=== PATIENT | female | born 1985 | race Caucasian/White ===

== ENCOUNTER → 2016-06-06 | Outpatient (CLI) | payer BC ==
[~2016-06-06] MED LIST: CALCIUM PO; CHOL100026 PO; DESO1TAB33 PO; FERR325T74 PO; LISI-787 PO; PANT40TA PO
== END | disposition home or self-care (01) ==
LOC: C.PAPS 09:42
PROVIDERS: ATTEND Obstetrics & Gynecology
DX: Z01.419 Encounter for gynecological examination (general) (routine) without abnormal findings (principal)

== ENCOUNTER 2018-07-13 20:04 | Inpatient (IN) ==
[2018-07-13] MEDS ORDERED: BETAMETH SOD PHOS/ACETATE IA 6 MG/ML IM SCH (20:45)
[2018-07-13] MEDS ORDERED: LABETALOL HCL IV 5 MG/ML 20ML IV ONE (20:58)
[2018-07-13] MEDS ORDERED: LABETALOL HCL IV 5 MG/ML 20ML IV STA ×2 (20:59→22:22)
[2018-07-13 21:25] LABS: Basophils # (auto) 0.03 K/uL (0-0.2); Basophils % (auto) 0.2 %; Eosinophils # (auto) 0.16 K/uL (0-0.5); Eosinophils % (auto) 1.2 %; Hematocrit (blood only) 32.9 % (37-47); Hemoglobin 11.1 g/dL (12.0-16.0); Immature Granulocytes # (auto) 0.23 K/uL (0.00-0.02); Immature Granulocytes % (auto) 1.8 %; Lymphocytes # (auto) 2.58 K/uL (1.2-3.4); Mean Corpuscular Volume 87.5 fL (80-100); Mean Platelet Volume 12.3 fL (7.4-10.4); Monocytes # (auto) 0.88 K/uL (0.11-0.59); Monocytes % (auto) 6.8 %; Neutrophils # (auto) 9.05 K/uL (1.4-6.5); Platelet Count 250 K/uL (130-400); RDW Coefficient of Variation 14.4 % (11.5-14.5); RDW Standard Deviation 45.8 fL (36.4-46.3); Red Blood Count 3.76 M/uL (4.2-5.4); White Blood Count 12.93 K/uL (4.8-10.8)
[2018-07-13] MEDS ORDERED: OXYTOCIN 30 UNITS/500 ML BAG IV PRN (21:25)
[2018-07-13] MEDS ORDERED: LACTATED RINGER'S 1,000 ML IV PRN (21:25)
[2018-07-13 21:30] LABS: Mean Corpuscular Hgb Conc 33.7 g/dL (32-36)
[2018-07-13] MEDS ORDERED: PENICILLIN G POTASSIUM 6 MU in DEXTROSE 5% 250 ML IV STA (21:30)
[2018-07-13] MEDS: LACTATED RINGER'S 1,000 ML IV SCH (21:34)
[2018-07-13 21:36] LABS: INR 0.9 (0.9-1.1); Prothrombin Time 9.7 Seconds (9.0-12.0)
--- NOTE | 2018-07-13 21:41 | History & Physical Report ---
Date of Service July 13, 2018 Assessment & Plan (1) premature rupture of membranes (PPROM) with unknown onset of labor: 33yo G1 at 35 weeks GA. PPROM - BMZ - PCN with GBS swab prior - Oxytocin for IOL (2) Chronic hypertension: Patient is a medication controlled cHTN. Elevated BPs on admission. No PIH symptoms - PIH labs ordered - Labetalol 20mg IV now - Discussed Preeclampsia and recommended Mg if BPs need to be retreated or with any symptoms or lab abnormalities. Patient agrees with plan History of Present Illness Chief Complaint: LOF Primary Care Provider: NO PCP 33yo G1 at 35.1 weeks GA with VIOLET of 08/16/18 by LMP. Patient present to L&D with LOF. Denies VB. Mild cramping. Good FM. At time of presentation patient was noted to have severe range BPs. She took her regular dose of Procardia this am. She is denying PIH symptoms. Patient course complicated by cHTN on Procardia XL 120mg daily. BPs have been controlled throughout [place] on 07/11: EFW ~50% Allergies Allergy/AdvReac Type Severity Reaction Status Date / Time No Known Allergies Allergy Verified 07/13/18 20:26 Home Medications Home Medications Medication Instructions Recorded Confirmed Type PNV cmb#95-ferrous fumarate-FA 1 tab PO DAILY 07/13/18 07/13/18 History [] aspirin 81 mg PO DAILY 07/13/18 07/13/18 History nifedipine 30 mg PO DAILY 07/13/18 07/13/18 History nifedipine 90 mg PO DAILY 07/13/18 07/13/18 History Patient History Medical History Chronic hypertension taking nifedipine daily [place] teeth removed 2011 Surgical History History of cholecystectomy 2007 History of tonsillectomy at age 8 Family History Mother Hypothyroid Gestational diabetes Hypertension Father High cholesterol Heart attack Grandmother Hypertension Social History Preferred Language: [place]i Communication Ability: Effective Risk Compliance Manager Required: No Beliefs That Will Affect Care: None marital status: Current Living Situation: Spouse Current Living Situation Comment: house Other Information That Helps Us Care for You: No Feels Safe at Home: Yes Safety Concerns: Feels Safe At This Time Smoking Status: Never smoker Hx Alcohol Use: No Hx Substance Use: No Physical Exam Vital Signs (Past 24 Hours): Last Vital Signs Temp 37.1 C 07/13/18 20:31 Pulse 96 H 07/13/18 21:31 Resp 20 07/13/18 20:31 BP 175/102 H 07/13/18 21:31 Gastrointestinal (Abdomen): Percussion/Palpation: abdomen soft; abdomen nontender Neurologic: Patellar DTR 1+ Genitourinary: Manual OB Exam: + cervical dilation (Closed), + cervical effacement 60%, + station -2 and + amniotic fluid clear OB Exam Monitor Tracing: + external FHT monitor used and + category I [place] q2-5 Results & Data Laboratory Results Laboratory Results - last 24 hr 07/13/18 07/13/18 07/13/18 21:16 21:16 21:16 WBC 12.93 H RBC 3.76 L Hgb 11.1 L Hct 32.9 L MCV 87.5 MCH 29.5 MCHC 33.7 RDW Std Deviation 45.8 RDW Coeff of Klaus 14.4 Plt Count 250 MPV 12.3 H Immature Gran % (Auto) 1.8 Neut % (Auto) 70.0 Lymph % (Auto) 20.0 [place] % (Auto) 6.8 Eos % (Auto) 1.2 Baso % (Auto) 0.2 Immature Gran # (Auto) 0.23 H Neut # (Auto) 9.05 H Lymph # (Auto) 2.58 [place] # (Auto) 0.88 H Eos # (Auto) 0.16 Baso # (Auto) 0.03 PT 9.7 INR 0.9 APTT 27.0 PTT Ratio 1.0 Sodium 137 Potassium 3.7 Chloride 104 Carbon Dioxide 19 L Anion Gap 14.0 H BUN 5 L Creatinine 0.67 Est Cr Clr Drug Dosing 139.0 Est GFR ( Amer) 134.8 Est GFR (Non-Af Amer) 116.3 BUN/Creatinine Ratio 7.5 L Glucose 84 Calcium 9.4 Total Bilirubin 0.2 AST 14 L ALT 13 Alkaline Phosphatase 113 Total Protein 7.0 Albumin 2.5 L Globulin 4.5 H Albumin/Globulin Ratio 0.6 L
[2018-07-13 21:42] LABS: Albumin Level 2.5 gm/dl (3.4-5.0); BUN Creatinine Ratio 7.5 (10-20); Calcium 9.4 mg/dl (8.5-10.1); Est GFR (African American) 134.8; Est GFR (Non-African American) 116.3; Potassium 3.7 mmol/L (3.5-5.1)
[2018-07-13 21:45] LABS: Albumin Globulin Ratio 0.6 (0.9-2); Bilirubin,Total 0.2 mg/dl (0.2-1); Globulin 4.5 gm/dl (2.5-4.0)
[2018-07-13] MEDS ORDERED: LABETALOL HCL 200 MG TAB PO SCH (22:30)
[2018-07-13 23:42] LABS: Creatinine Urine Random 95.6 mg/dl; Total Protein Urine Random 19.5 mg/dl (0-11.9)
[2018-07-14] MEDS: PENICILLIN G POTASSIUM 3 MU in DEXTROSE 5% 100 ML IV PRN ×5 (02:00→18:32)
--- NOTE | 2018-07-14 04:55 | Obstetrical Progress Note ---
Date of Service July 14, 2018 Assessment & Plan (1) premature rupture of membranes (PPROM) with unknown onset of labor: 33yo G1 at 35 weeks GA. PPROM - BMZ - PCN with GBS swab prior - Oxytocin for IOL. IUPC placed (2) Chronic hypertension: Patient is a medication controlled cHTN. Elevated BPs on admission. No PIH symptoms - PIH labs ordered - Labetalol 20mg IV now - Discussed Preeclampsia and recommended Mg if BPs need to be retreated or with any symptoms or lab abnormalities. Patient agrees with plan Subjective Doing well Physical Exam Vital Signs (Past 24 Hours): Last Vital Signs Temp 36.9 C 07/14/18 04:05 Pulse 81 07/14/18 04:02 Resp 18 07/14/18 04:05 BP 134/86 07/14/18 04:02 Genitourinary: OB Exam Abdomen: + fundal height Manual OB Exam: + cervical dilation 1 cm, + cervical effacement 70%, + station -2 and + amniotic fluid clear OB Exam Monitor Tracing: + external FHT monitor used, + intra-uterine pressure catheter used and + category I
--- NOTE | 2018-07-14 07:59 | Labor Progress Brief Note ---
Date of Service July 14, 2018 Subjective Assuming care of patient. Course of care thus far reviewed with Dr. Arguelles and SIRI Crowe. Patient seen and examined. She is tolerating contractions without pain relief, still smiling, appears comfortable. She is concerned about length of labor remaining ahead, as she is hungry and restless. Not feeling feverish or ill. Assessment & Plan (1) Chronic hypertension: Continue procardia and additional labetalol. BP noted to be hypertensive but not severe. Patient currently denies severe feature symptoms. Labs reviewed and no evidence of superimposed preeclampsia found there. Present on Admission?: Yes (2) premature rupture of membranes (PPROM) with unknown onset of labor: PPROM with overnight course of pitocin. Cervix was initially unripe but patient was hesham too frequently on admission to be considered a candidate for cytotec by the physician at that time. Pitocin was used overnight. At this point, IUPC was in place to allow titration of pit at doses >20. External monitoring was effective per RN and the choice to use IUPC was solely to allow MVU tracking. Cervix now ripe, however we remain remote from vaginal delivery. There are no indications at this point to change to plan for ; mom afebrile, FHT Cat 1, fluid clear, etc. Therefore I anticipate many hours to go. In order to minimize the total pitocin exposure for mom, and to help with her tolerance of the long process to come, I offered her a break this morning. We can turn off pitocin, feed breakfast and take a walk/shower. This will allow uterine receptors to desaturate as well and hopefully allow use of lower doses of pitocin with greater efficacy. Patient is eager to do this. Plan d/w patient and SIRI Crowe is to mykel IV, get regular diet tray shabbir. We will aim to reconnect pitocin at 10am. Will restart at 1mu/min and titrate back up by twos from there. I removed the IUPC at this point to minimize infection risk, and because I don't anticipate needing MVU info again until we're back up to >20 which will be quite some time. Risks of taking a break in our induction process include longer total time to delivery and accompanying increased risk in infection since membranes ruptured. Patient and FOB understand and agree that they wish to take a break and restart from low doses of pit at 10am. Present on Admission?: Yes Physical Exam Vital Signs (Past 24 Hours): Last Vital Signs Temp 36.6 C 07/14/18 07:02 Pulse 90 07/14/18 07:02 Resp 20 07/14/18 07:02 BP 156/99 H 07/14/18 07:02 Physical Exam: T Cat 1 [place] Q2.5min Pit @ 26 Resting L lateral and speaking fluidly, no signs of distress even during contractions. No epidural yet. Fluid on chux is clear. IUPC removed. Cervix is 1.5/90/-2/soft/ant. BP currently 156/99 and patient due for home procardia dose as well as ordered for oral labetalol by Dr. Arguelles. Results & Data Laboratory Results Laboratory Results - last 24 hr 07/13/18 07/13/18 07/13/18 20:43 21:16 21:16 WBC 12.93 H RBC 3.76 L Hgb 11.1 L Hct 32.9 L MCV 87.5 MCH 29.5 MCHC 33.7 RDW Std Deviation 45.8 RDW Coeff of Klaus 14.4 Plt Count 250 MPV 12.3 H Immature Gran % (Auto) 1.8 Neut % (Auto) 70.0 Lymph % (Auto) 20.0 [place] % (Auto) 6.8 Eos % (Auto) 1.2 Baso % (Auto) 0.2 Immature Gran # (Auto) 0.23 H Neut # (Auto) 9.05 H Lymph # (Auto) 2.58 [place] # (Auto) 0.88 H Eos # (Auto) 0.16 Baso # (Auto) 0.03 PT 9.7 INR 0.9 APTT 27.0 PTT Ratio 1.0 Sodium Potassium Chloride Carbon Dioxide Anion Gap BUN Creatinine Est Cr Clr Drug Dosing Est GFR ( Amer) Est GFR (Non-Af Amer) BUN/Creatinine Ratio Glucose Calcium Total Bilirubin AST ALT Alkaline Phosphatase Total Protein Albumin Globulin Albumin/Globulin Ratio Ur Random Creatinine U Random Total Protein Protein/Creatinin Ratio Amniotic Protein POS 07/13/18 07/13/18 21:16 23:00 WBC RBC Hgb Hct MCV MCH MCHC RDW Std Deviation RDW Coeff of Klaus Plt Count MPV Immature Gran % (Auto) Neut % (Auto) Lymph % (Auto) [place] % (Auto) Eos % (Auto) Baso % (Auto) Immature Gran # (Auto) Neut # (Auto) Lymph # (Auto) [place] # (Auto) Eos # (Auto) Baso # (Auto) PT INR APTT PTT Ratio Sodium 137 Potassium 3.7 Chloride 104 Carbon Dioxide 19 L Anion Gap 14.0 H BUN 5 L Creatinine 0.67 Est Cr Clr Drug Dosing 139.0 Est GFR ( Amer) 134.8 Est GFR (Non-Af Amer) 116.3 BUN/Creatinine Ratio 7.5 L Glucose 84 Calcium 9.4 Total Bilirubin 0.2 AST 14 L ALT 13 Alkaline Phosphatase 113 Total Protein 7.0 Albumin 2.5 L Globulin 4.5 H Albumin/Globulin Ratio 0.6 L Ur Random Creatinine 95.6 U Random Total Protein 19.5 H Protein/Creatinin Ratio 0.2 Amniotic Protein
[2018-07-14] MEDS: NIFEdipine EXTENDED REL 30 MG TABCR PO SCH (08:22)
[2018-07-14] MEDS ORDERED: CALCIUM CARBONATE 500 MG CHEWABLE TAB PO PRN (12:05)
[2018-07-14] MEDS: LACTATED RINGER'S 1,000 ML IV SCH ×2 (12:24→18:15)
--- NOTE | 2018-07-14 14:42 | Labor Progress Brief Note ---
Date of Service July 14, 2018 Subjective Delayed entry due to other patient care duties. Saw Isabela shortly ago, she was resting L lateral and tolerating contractions without pain medication. Assessment & Plan (1) premature rupture of membranes (PPROM) with unknown onset of labor: Continue pitocin titration to Q2min ctx or 20mu/min. Epidural on request. Re-exam either after epidural, after pit @ 20 to decide for IUPC and further titration to MVU goals, or after contractions adequate Q2-3min for an hour. Continue PCN for GBS unknown and PPROM. Present on Admission?: Yes (2) Chronic hypertension: Continue current meds. BP at goal. Present on Admission?: Yes Physical Exam Vital Signs (Past 24 Hours): Last Vital Signs Temp 36.6 C 07/14/18 13:22 Pulse 96 H 07/14/18 14:35 Resp 18 07/14/18 13:22 BP 133/87 07/14/18 14:35 Physical Exam: Pit was at 13 at time of exam. FHT Cat 1 [place] roughly Q5min. Cervix not rechecked at this time, contractions not yet adequate.
[2018-07-14] MEDS ORDERED: OXYTOCIN 30 UNITS/500 ML BAG IV PRN (15:46)
[2018-07-14] MEDS ORDERED: BUPIVACAINE 0.25% 30 ML VIAL ONE (17:23)
[2018-07-14] MEDS ORDERED: ePHEDrine sulfate 50 MG/ML AMP ONE (17:23)
[2018-07-14] MEDS ORDERED: fentaNYL citrate 100 MCG/2 ML VIAL ONE (17:24)
[2018-07-14] MEDS ORDERED: fentaNYL 2MCG/ML ROPIV 1.25MG/ML 100 ML BAG EPI ONE (17:24)
--- NOTE | 2018-07-14 18:39 | Anesthesiology Consultation ---
Date of Service July 14, 2018 Assessment & Plan Chart Review Chart Review: Patient NOT seen in Pre Admission Testing and Acceptable Risk for Labor Epidural Consults Requested none ASA ASA3 Proposed Anesthesia Anesthesia Type: Labor Epidural Risk / Benefits Reviewed With: PT / POA / Parent / Guardian, Accepts Plan and Informed Consent Obtained NPO Date Last Intake of Fluids: 07/14/18 Time Last Intake of Fluids: 18:38 Date Last Intake of Solids: 07/14/18 Time Last Intake of Solids: 08:00 History Height/Weight Height: 5 ft 7 in Weight: 90.265 kg Allergies Allergy/AdvReac Type Severity Reaction Status Date / Time No Known Allergies Allergy Verified 07/13/18 20:26 Medications Home Medications Medication Instructions Recorded Confirmed Last Taken PNV cmb#95-ferrous fumarate-FA 1 tab PO DAILY 07/13/18 07/13/18 07/13/18 08:00 [] aspirin 81 mg PO DAILY 07/13/18 07/13/18 07/13/18 08:00 nifedipine 30 mg PO DAILY 07/13/18 07/13/18 07/13/18 08:00 nifedipine 90 mg PO DAILY 07/13/18 07/13/18 07/13/18 08:00 Active Medications Generic Name Dose Route Start Last Admin Trade Name Freq PRN Reason Stop Dose Admin Betamethasone Acet/Betameth SodPhos 12 mg 07/13/18 20:45 07/13/18 21:12 Cel[place] Soluspan IM 08/12/18 20:44 12 mg ONCE CHRISTIAN Administration Calcium Carbonate 1,000 mg 07/14/18 12:05 07/14/18 12:54 Tums PO 08/13/18 12:04 1,000 mg Q4 PRN Administration Indigestion Penicillin G Potassium 3 mu/ 106 mls @ 100 mls/hr 07/13/18 21:13 07/14/18 18:32 Dextrose IV 07/23/18 21:12 100 mls/hr Q4H PRN Administration Give until delivery Lactated Ringer's 1,000 mls @ 125 mls/hr 07/13/18 22:00 07/14/18 18:15 Lr IV 08/12/18 21:59 125 mls/hr .Q8H CHRISTIAN Administration Oxytocin 30 units in 500 mls @ 21 mls/hr 07/14/18 15:46 07/14/18 16:45 Pitocin IV 07/16/18 15:45 1.26 units/hr .[id number] PRN 21 mls/hr Labor Induction/Augmentation Titration Protocol 1.26 UNITS/HR Nifedipine 120 mg 07/14/18 09:00 07/14/18 08:22 Procardia Xl PO 08/13/18 08:59 120 mg QAM CHRISTIAN Administration Past Medical History Medical History Chronic hypertension taking nifedipine daily [place] teeth removed 2011 Past Family History Family History Mother Hypothyroid Gestational diabetes Hypertension Father High cholesterol Heart attack Grandmother Hypertension Past Surgical History Surgical History History of cholecystectomy 2007 History of tonsillectomy at age 8 Past Anesthesia History No Hx of Anesthesia Complications History of PONV Yes Motion Sickness Screening History of Motion Sickness: Yes Social History Smoking Status: Never smoker Hx Alcohol Use: No Hx Substance Use: No Exercise / Class Metabolic Activity II 4-5 Yardwork/Stairs/Walk up hill Negative for chest pain or shortness of breath. Review of Systems Patient denies active symptoms of GERD. Patient denies history of abnormal bleeding or bleeding disorder. Patient denies active use of anticoagulants other than low dose aspirin. Patient denies numbness, tingling or weakness in upper extremities. Patient denies numbness, tingling or weakness in his lower extremities. Physical Exam Vital Signs Last Vital Signs Temp 36.9 C 07/14/18 17:19 Pulse 95 H 07/14/18 18:34 Resp 20 07/14/18 17:19 BP 175/103 H 07/14/18 18:34 Pulse Ox 99 07/14/18 18:31 Constitutional not obese (Gravid uterus) ENMT Mouth: no TMJ abnormality and oral opening not small Thyromental Distance: > or= 3.5 Finger Breadths Mallampati Class: II Neck normal visual inspection; neck extension not limited Respiratory normal respiratory effort Auscultation: lungs clear to auscultation bilaterally Cardiovascular Rate/Rhythm: regular rate and regular rhythm Heart Sounds: no murmur Psychiatric A+Ox3, euthymic affect Orientation: alert and oriented x 3 Testing Laboratory Results 07/13/18 21:16 07/13/18 21:16 PT 9.7 Seconds (9.0-12.0) 07/13/18 21:16 INR 0.9 (0.9-1.1) 07/13/18 21:16 APTT 27.0 Seconds (21.0-31.0) 07/13/18 21:16
[2018-07-14] MEDS ORDERED: NALOXONE HCL 1 MG in SODIUM CHLORIDE 0.9% 1000ML 1,000 ML IV PRN ×2 (19:12→23:52)
[2018-07-14] MEDS ORDERED: ePHEDrine sulfate 50 MG/ML AMP IV PRN ×2 (19:12→23:52)
[2018-07-14] MEDS ORDERED: fentaNYL 2MCG/ML ROPIV 1.25MG/ML 100 ML BAG EPI PRN (19:12)
[2018-07-14] MEDS ORDERED: DiphenhydrAMINE HCL 50 MG/ML VIAL IV PRN ×2 (19:12→23:52)
[2018-07-14] MEDS ORDERED: NALOXONE HCL 0.4 MG/1 ML VIAL/CARP IV PRN ×2 (19:12→23:52)
[2018-07-14] MEDS ORDERED: NALBUPHINE HCL INJ 10 MG/ML AMP IV PRN (19:12)
[2018-07-14] MEDS ORDERED: ONDANSETRON INJ 2 MG/ML 2 ML VIAL IV PRN ×2 (19:12→23:52)
[2018-07-14] MEDS ORDERED: LACTATED RINGER'S 1,000 ML IV PRN (19:12)
--- NOTE | 2018-07-14 20:11 | Labor Progress Brief Note ---
Date of Service July 14, 2018 Subjective Patient seen earlier when pitocin reached 21. She was becoming uncomfortable enough that she was requesting epidural, so I was hopeful this indicated progress. We discussed going ahead and getting that epidural, after which I would recheck the cervix. She had a lot of pain with first IUPC placement and wanted to have the anesthesia on board before it was replaced if needed. I returned to see her just now and we did re-examine the cervix as she was completely comfortable. Assessment & Plan (1) premature rupture of membranes (PPROM) with unknown onset of labor: Lengthly discussion with patient and FOB at bedside. No current reason why we have to abandon IOL, as she is afebrile and tones are reassuring. I offered placement of IUPC and titration of pitocin to adequate MVU. We also discussed that after two days of ruptured membranes and more than 24 hours of induction with high doses of pitocin, there has been no change in her cervix. This causes me to suspect the pelvic inlet is narrow, and the head is unable to apply direct pressure to the cervix and effect dilation. If that is the case, further attempts at induction will only result in increased risks for infection and/or PPH, but we can't really know unless we try. The patient is frustrated at the length of time this process is taking and the lack of progress. We discussed the risks of at length including surgical injury to mom or baby, and the impact on future pregnancies. She asked appropriate questions about each option (continued induction vs delivery). She and FOB agree that they prefer to move to rather than place IUPC and continue pitocin. The on-call anesthesiologist is currently starting an emergency OR case and estimates they will be available for this delivery in one hour. The patient was made aware that if she becomes febrile or status nonreassuring during the waiting period, we will change our plans and request an additional anesthesiologist; otherwise I think it reasonable to wait the estimated one hour for delivery, which also allows time for her uterine receptors to desaturate from the pitocin. She understands the estimated timeline and is agreeable. Pitocin is now off, and she is resting comfortably with the epidural. Present on Admission?: Yes (2) Chronic hypertension: Present on Admission?: Yes Physical Exam Vital Signs (Past 24 Hours): Last Vital Signs Temp 36.6 C 07/14/18 19:19 Pulse 86 07/14/18 20:01 Resp 18 07/14/18 19:19 BP 162/101 H 07/14/18 19:52 Pulse Ox 98 07/14/18 20:01 Physical Exam: FHT Cat 1 [place] Q3min Pit @ 21 Cvx unchanged from this morning. 1.5cm dilated, station high. LOF continues to be clear and copious. Patient afebrile.
[2018-07-14] MEDS ORDERED: CITRIC ACID/SODIUM CITRATE 15 ML UDC ONE (20:20)
[2018-07-14] MEDS ORDERED: cefOXitin 2,000 MG in DEXTROSE 5% 50 ML IV SCH (20:30)
[2018-07-14] MEDS ORDERED: LACTATED RINGER'S 1,000 ML IV SCH (21:00)
[2018-07-14] MEDS ORDERED: LIDOCAINE/EPINEPHRINE 2% 1:200,000 20 ML SDV ONE (22:13)
[2018-07-14] MEDS ORDERED: OXYTOCIN 10 UNITS/ML VIAL ONE (23:01)
[2018-07-14] MEDS ORDERED: MoRPHine SULFATE PF 1 MG/ML 10 ML AMP/VIAL ONE (23:02)
[2018-07-14] MEDS ORDERED: ONDANSETRON INJ 2 MG/ML 2 ML VIAL ONE (23:02)
[2018-07-14] MEDS ORDERED: KETOROLAC 30 MG/ML VIAL ONE (23:25)
--- NOTE | 2018-07-14 23:42 | Post Operative Brief Note ---
Immediate Post Op Note v1 Date of Surgery July 14, 2018 Pre & Post Diagnosis Operation Date: 07/14/18 20:00 <No data on this case meets the specified criteria> [place] IUP at 35+ weeks PPROM Prolonged IOL without achieving labor Maternal request for delivery Procedure Operation Date: 07/14/18 20:00 <No data on this case meets the specified criteria> Primary low transverse section Note: Patient accompanied by surgeon to PACU Surgeon Skylar Alvarado MD Water Resource Manager Colby Smith RN Estimated Blood Loss 500 Findings Consistent with Post-Op Diagnosis
[2018-07-14] MEDS ORDERED: NO NARCOTICS OR SEDATIVES SCH (23:45)
[2018-07-14] MEDS ORDERED: SODIUM CHLORIDE 0.9% 1000ML 1,000 ML IV SCH (23:45)
[2018-07-14] MEDS ORDERED: KETOROLAC 30 MG/ML VIAL IV PRN (23:52)
[2018-07-14] MEDS ORDERED: HYDROmorphone INJ 0.5 MG/0.5 ML SYR IV PRN (23:52)
[2018-07-14] MEDS ORDERED: NALOXONE HCL 0.08 MG in SYRINGE 1.8 ML IV PRN (23:52)
[2018-07-14] MEDS ORDERED: LACTATED RINGER'S 500 ML IV PRN (23:52)
[2018-07-14] MEDS ORDERED: MoRPHine SULFATE PF 1 MG/ML 10 ML AMP/VIAL EPI ONE (23:52)
--- NOTE | 2018-07-14 23:52 | Anesthesia Procedure Note ---
Date of Service July 14, 2018 Anesthesia Post Epidural Note Vital Signs Vital Signs: Temp Pulse Resp BP Pulse Ox 36.5 C 88 18 123/77 100 07/14/18 21:00 07/14/18 23:47 07/14/18 22:00 07/14/18 23:45 07/14/18 23:47 Notes Mental Status: alert / awake / arousable and participated in evaluation Nausea / Vomiting: adequately controlled Pain: adequately controlled Airway Patency, RR, SpO2: stable & adequate BP & HR: stable & adequate Hydration State: stable & adequate Neuraxial Anesthesia: was administered and sensory block is resolving Anesthetic Complications: no major complications apparent and Pt Satisfied with anesthetic care Epidural: Removed without complications and With tip intact
--- NOTE | 2018-07-15 00:10 | Operative Report ---
DATE OF OPERATION: 07/14/2018 PREOPERATIVE DIAGNOSES: 1. [place] intrauterine at 35 plus weeks. 2. premature rupture of the membranes. 3. Prolonged induction without achieving labor. 4. Maternal request for delivery. POSTOPERATIVE DIAGNOSES: Same. PROCEDURE: Primary low transverse section. SURGEON: Skylar Alvarado MD EFFICIENCY CLERK: Toma HORNER. ESTIMATED BLOOD LOSS: 500. COMPLICATIONS: None. FINDINGS: Normal tubes and ovaries bilaterally. DISPOSITION: The patient accompanied by surgeon in stable condition to the PACU. DESCRIPTION OF PROCEDURE: The patient is a 33-year-old G1 who was admitted by Dr. Arguelles with premature rupture of membranes. The cervix was unripe on admission, but the patient was hesham and not felt to be a candidate for prostaglandins. She was given Pitocin. At the time I assumed care of the patient, she had been ruptured for approximately 36 hours and had not progressed past 1.5 cm. At that point after discussion with the patient, Pitocin was stopped and she was given an opportunity to have breakfast, ambulate, take a shower, etc. and then Pitocin was restarted. Throughout the day of 07/14/2018, the patient was titrated on Pitocin up to 20. She did receive an epidural for pain management; however, her cervical dilation never progressed beyond 1.5 cm. She was offered replacement of intrauterine pressure catheter and continued Pitocin titration; however, at this point she elected to proceed to section. She was brought to the operating room. Once all the necessary personnel were available, she was placed on the table in the supine position with a leftward tilt and prepped and draped in standard sterile fashion. Adequate anesthesia was confirmed and a hard time-out was taken prior to proceeding. A Pfannenstiel incision was created and carried down sharply to the fascia which was nicked and then extended using Mcclain scissors. Travis clamps were used to elevate the fascia which was sharply and bluntly dissected off the rectus both superiorly and then inferiorly. The midline of the rectus was naturally . This was extended in a blunt manner and the peritoneum was then entered bluntly. Bladder blade was then placed. The bladder flap was created and the bladder retractor was moved behind this flap. The lower uterine transverse incision was then made in a sharp manner with final entry to the uterus being made bluntly using the surgeon's finger. This was extended in a semilunar fashion. Clear fluid was encountered. The head was elevated to the hysterotomy easily and was noted to be poorly engaged in the pelvis. With mild fundal pressure, the did not initially deliver; therefore, a [place] suction cup was applied to the head and used to guide the head out through the next fundal pressure. The 's head did deliver. The suction cup was removed. A loose nuchal cord was unwrapped and the remainder of the infant was then delivered. The cord was doubly clamped and cut and the was taken to the warmer. The placenta was manually extracted and the uterus was gently exteriorized. The uterus was cleared of all clot and debris using a dry lap sponge and then the hysterotomy was repaired in 2-layer fashion using 0 Vicryl suture. At the completion of repair, the hysterotomy had been found to be hemostatic. The tubes and ovaries were examined and found to be normal. The posterior gutter was cleared of clot and debris using irrigation and suction and the uterus was then gently reapproximated to the abdomen. The lateral gutters were cleared of clot and debris using damp lap sponges. The hysterotomy was seen to be hemostatic and closure of the rectus muscles then proceeded using 0 chromic in a running nonlocked manner. The fascia was then closed using #1 Vicryl in a running nonlocked manner. At the completion of closure, the fascia was examined and found to be free of any defect. The subcutaneous tissue was copiously irrigated and then closed using a 3-0 chromic in a subdermal fashion and then a subcuticular 4-0 Monocryl was used to close the skin. A Dermabond dressing was applied and the Smith was noted to be draining clear yellow urine as the patient was brought back to her recovery room. I attest to the content of the Intraoperative Record and any orders documented therein. Any exceptions are noted below. ANGELA
[2018-07-15] MEDS ORDERED: HYDROCORTISONE ACETATE 25 MG SUPP PR PRN (00:19)
[2018-07-15] MEDS ORDERED: SUPERCREAM 0.870% 15 GM JAR EXT PRN (00:19)
[2018-07-15] MEDS ORDERED: BENZOCAINE 20% AER SPR 82.5 GM CAN EXT PRN (00:19)
[2018-07-15] MEDS ORDERED: DIPHTHERIA/TETANUS/PERTUSSIS 0.5 ML SYR/VIAL IM ONE (00:19)
[2018-07-15] MEDS ORDERED: LACTATED RINGER'S 1,000 ML IV SCH (00:19)
[2018-07-15] MEDS ORDERED: OXYTOCIN 30 UNITS in LACTATED RINGER'S 1,000 ML IV SCH (00:30)
[2018-07-15] MEDS: ACETAMINOPHEN 1,000 MG/100 ML VIAL IV SCH ×3 (00:37→18:36)
--- NOTE | 2018-07-15 02:44 | Anesthesiology Progress Note ---
Date of Service July 15, 2018 Anesthesia Post Procedure Vital Signs Vital Signs: Temp Pulse Resp BP Pulse Ox 07/15/18 02:20 18 99 07/15/18 02:10 96 H 95 07/15/18 02:05 89 93 07/15/18 02:00 81 96 07/15/18 01:55 84 96 07/15/18 01:52 98 H 94 07/15/18 01:50 89 96 07/15/18 01:46 85 139/84 07/15/18 01:45 36.5 C 85 18 139/84 97 07/15/18 01:42 89 97 07/15/18 01:37 88 97 07/15/18 01:36 90 150/84 H 07/15/18 01:32 91 H 97 07/15/18 01:27 88 98 07/15/18 01:22 94 H 98 07/15/18 01:17 90 98 07/15/18 01:16 89 154/94 H 07/15/18 01:15 94 H 18 154/84 H 99 07/15/18 01:12 92 H 99 07/15/18 01:07 93 H 98 07/15/18 01:02 98 H 99 07/15/18 00:57 97 H 98 07/15/18 00:52 89 99 07/15/18 00:47 112 H 99 07/15/18 00:45 99 H 18 151/97 H 99 07/15/18 00:42 95 H 99 07/15/18 00:37 94 H 99 07/15/18 00:35 91 H 18 141/94 H 99 07/15/18 00:32 90 99 07/15/18 00:27 98 H 99 07/15/18 00:25 95 H 16 140/81 99 07/15/18 00:22 97 H 99 07/15/18 00:17 104 H 100 07/15/18 00:15 80 16 133/70 100 07/15/18 00:12 83 99 07/15/18 00:07 94 H 100 07/15/18 00:06 97 H 18 138/68 100 07/15/18 00:02 104 H 100 07/14/18 23:57 94 H 18 136/86 100 07/14/18 23:52 110 H 55 L 07/14/18 23:51 91 H 89 L 07/14/18 23:47 88 100 07/14/18 23:45 36.5 C 90 16 123/77 100 07/14/18 23:44 88 123/74 07/14/18 23:42 88 100 07/14/18 22:34 110 H 159/90 H 99 07/14/18 22:30 104 H 120/89 07/14/18 22:29 106 H 98 07/14/18 22:28 93 H 150/92 H 07/14/18 22:26 91 H 98 07/14/18 22:22 91 H 152/90 H 07/14/18 22:21 96 H 99 07/14/18 22:16 99 H 97 07/14/18 22:11 102 H 98 07/14/18 22:07 93 H 150/90 H 07/14/18 22:06 95 H 97 07/14/18 22:01 91 H 97 07/14/18 22:00 18 07/14/18 21:56 89 99 07/14/18 21:52 90 159/92 H 07/14/18 21:51 98 H 98 07/14/18 21:46 95 H 99 07/14/18 21:41 93 H 98 07/14/18 21:37 91 H 157/88 H 07/14/18 21:36 96 H 99 07/14/18 21:32 89 140/87 07/14/18 21:31 92 H 99 07/14/18 21:30 18 07/14/18 21:26 97 H 99 07/14/18 21:21 93 H 98 07/14/18 21:16 90 98 07/14/18 21:11 91 H 98 07/14/18 21:06 92 H 98 07/14/18 21:01 98 H 98 07/14/18 21:00 36.5 C 18 07/14/18 20:56 93 H 98 07/14/18 20:52 92 H 153/90 H 07/14/18 20:51 96 H 98 07/14/18 20:46 93 H 98 07/14/18 20:41 92 H 98 07/14/18 20:37 90 148/76 H 07/14/18 20:36 88 99 07/14/18 20:31 87 98 07/14/18 20:26 90 98 07/14/18 20:22 97 H 157/98 H 07/14/18 20:21 101 H 98 07/14/18 20:16 96 H 98 07/14/18 20:11 89 98 07/14/18 20:07 85 153/95 H 07/14/18 20:06 97 H 98 07/14/18 20:01 86 98 07/14/18 19:56 92 H 98 07/14/18 19:52 105 H 162/101 H 07/14/18 19:51 101 H 99 07/14/18 19:46 99 H 99 07/14/18 19:41 93 H 99 07/14/18 19:37 95 H 152/93 H 07/14/18 19:36 85 98 07/14/18 19:35 94 H 152/94 H 07/14/18 19:33 96 H 151/94 H 07/14/18 19:31 82 160/97 H 99 07/14/18 19:29 93 H 155/96 H 07/14/18 19:27 99 H 153/98 H 07/14/18 19:26 97 H 99 07/14/18 19:25 86 145/90 H 07/14/18 19:23 86 147/92 H 07/14/18 19:21 84 142/86 H 98 07/14/18 19:19 36.6 C 88 18 153/91 H 07/14/18 19:17 82 158/92 H 07/14/18 19:16 86 99 07/14/18 19:15 85 153/89 H 07/14/18 19:13 81 151/89 H 07/14/18 19:11 94 H 145/84 H 98 07/14/18 19:09 85 147/91 H 07/14/18 19:07 88 152/91 H 07/14/18 19:06 94 H 98 07/14/18 19:05 88 155/97 H 07/14/18 19:04 92 H 153/95 H 07/14/18 19:01 103 H 156/90 H 99 07/14/18 18:59 94 H 159/98 H 07/14/18 18:57 93 H 176/107 H 07/14/18 18:56 93 H 99 07/14/18 18:51 98 H 98 07/14/18 18:46 110 H 99 07/14/18 18:41 116 H 98 07/14/18 18:37 90 163/100 H 07/14/18 18:36 97 H 99 07/14/18 18:34 95 H 175/103 H 07/14/18 18:31 92 H 99 07/14/18 18:26 95 H 98 07/14/18 18:21 93 H 99 07/14/18 18:16 92 H 98 07/14/18 18:11 93 H 99 07/14/18 18:06 99 H 99 07/14/18 18:01 91 H 98 07/14/18 17:56 89 99 07/14/18 17:51 91 H 98 07/14/18 17:46 90 99 07/14/18 17:41 89 99 07/14/18 17:36 84 100 07/14/18 17:31 90 99 07/14/18 17:26 85 99 07/14/18 17:21 86 99 07/14/18 17:20 81 172/99 H 07/14/18 17:19 36.9 C 20 07/14/18 16:38 84 157/94 H 07/14/18 15:39 86 141/89 H 07/14/18 14:35 36.6 C 96 H 20 133/87 07/14/18 13:22 36.6 C 103 H 18 140/84 07/14/18 12:15 99 H 146/85 H 07/14/18 11:18 36.8 C 94 H 20 161/87 H 07/14/18 10:12 90 133/91 07/14/18 09:30 96 H 139/79 07/14/18 09:29 36.8 C 20 07/14/18 07:51 93 H 136/83 07/14/18 07:02 36.6 C 90 20 156/99 H 07/14/18 06:30 18 07/14/18 06:10 36.8 C 18 07/14/18 06:03 90 136/91 07/14/18 05:30 18 07/14/18 05:02 88 139/91 07/14/18 05:00 18 07/14/18 04:42 18 07/14/18 04:05 36.9 C 18 07/14/18 04:02 81 134/86 07/14/18 04:00 18 07/14/18 03:35 18 07/14/18 03:03 36.7 C 94 H 135/79 07/14/18 03:02 18 Pain Intensity Bilateral Lower Abdomen: Pain Intensity: 1 Notes Mental Status: alert / awake / arousable and participated in evaluation Nausea / Vomiting: improving with treatment Pain: adequately controlled Airway Patency, RR, SpO2: stable & adequate BP & HR: stable & adequate Hydration State: stable & adequate Neuraxial Anesthesia: was administered and sensory block is resolving Anesthetic Complications: no major complications apparent
[2018-07-15] MEDS ORDERED: Nursing to Pharmacy Communication STA (05:18)
[2018-07-15] MEDS: NIFEdipine EXTENDED REL 30 MG TABCR PO SCH (05:21)
[2018-07-15] MEDS: NALBUPHINE HCL INJ 10 MG/ML AMP IV PRN ×2 (05:30→17:07)
[2018-07-15] MEDS ORDERED: CITRIC ACID/SODIUM CITRATE 15 ML UDC PO SCH (06:00)
[2018-07-15 06:32] LABS: Basophils # (auto) 0.01 K/uL (0-0.2); Basophils % (auto) 0.1 %; Eosinophils # (auto) 0.06 K/uL (0-0.5); Eosinophils % (auto) 0.4 %; Hematocrit (blood only) 31.4 % (37-47); Hemoglobin 10.4 g/dL (12.0-16.0); Immature Granulocytes # (auto) 0.14 K/uL (0.00-0.02); Immature Granulocytes % (auto) 0.9 %; Lymphocytes # (auto) 2.18 K/uL (1.2-3.4); Lymphocytes % (auto) 14.3 %; Mean Corpuscular Hgb Conc 33.1 g/dL (32-36); Mean Corpuscular Volume 87.5 fL (80-100); Mean Platelet Volume 12.3 fL (7.4-10.4); Monocytes # (auto) 0.96 K/uL (0.11-0.59); Monocytes % (auto) 6.3 %; Neutrophils # (auto) 11.94 K/uL (1.4-6.5); Platelet Count 237 K/uL (130-400); RDW Coefficient of Variation 14.6 % (11.5-14.5); RDW Standard Deviation 45.9 fL (36.4-46.3); Red Blood Count 3.59 M/uL (4.2-5.4); White Blood Count 15.29 K/uL (4.8-10.8)
[2018-07-15] MEDS: LABETALOL HCL 200 MG TAB PO SCH ×2 (06:58→20:38)
--- NOTE | 2018-07-15 06:58 | Obstetrical Progress Note ---
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 -Pt is doing clinically well -Continue to encourage ambulation as tolerated, Monitor and control pain with Motrin, toradol, oxycodone q4h prn. -Advanced diet to reg ob continue as tolerated -plan is to breast feed and supplement as needed -routine post op care Supervising Physician Co-Signing Physician Notes I was made aware of patient's BP in early AM when they were noted to be in severe range. Her reflexes were 2+ and her only complaint at that time was dizziness and fatigue. I asked the nurse to give her standard daily dose of procardia at that time, a little bit early, to see if we could bring her back to her "usual" range of 140s/80s. By 6:45 her BP had improved to 158/100, and the platelets were resulted and reassuring. Exam of the patient reveals DTR 2+ for me, no edema, no upper abdominal tenderness. Patient says her dizziness is improving, and she continues to deny BLOOD, RUQ pain, vision changes or worsening edema. I have added labetalol 200mg PO BID to her medications and first dose is being given now. CMP and coags also added for this morning to r/o superimposed preeclampsia. At this time I don't think she meets criteria for diagnosis or mag. Subjective Pt resting in bed with dad laying in the chair bed. Overnight pt had elevated bp with nausea specfically denied H/A, chest pain, palpitations, vision changes, and RUQ pain. Otherwise pt is doing well, she reports minimal pain, Smith in place urine is yellow. Physical Exam Vital Signs (Past 24 Hours): Last Vital Signs Temp 36.8 C 07/15/18 02:30 Pulse 61 07/15/18 06:40 Resp 18 03/05/19 06:15 BP 158/100 H 07/15/18 06:40 Pulse Ox 99 07/15/18 06:15 Constitutional: WD/WN, vitals as above Eyes: normal visual basilio by confrontation Respiratory: normal respiratory effort, lungs clear to auscultation Cardiovascular: RRR, no murmur, no edema Extremities: no calf tenderness Gastrointestinal (Abdomen): normal bowel sounds, soft, nontender, no hepatosplenomegaly (Surgical site clean, dry, intact. Uterus is firm ) Skin: no rashes, warm and dry Results & Data Laboratory Results 07/15/18 07/13/18 Range/Units 06:16 21:16 WBC 15.29 H (4.8-10.8) K/uL RBC 3.59 L (4.2-5.4) M/uL Hgb 10.4 L (12.0-16.0) g/dL Hct 31.4 L (37-47) % MCV 87.5 (80-100) fL MCH 29.0 (25-34) pg MCHC 33.1 (32-36) g/dL RDW Std Deviation 45.9 (36.4-46.3) fL RDW Coeff of Klaus 14.6 H (11.5-14.5) % Plt Count 237 (130-400) K/uL MPV 12.3 H (7.4-10.4) fL Immature Gran % (Auto) 0.9 % Neut % (Auto) 78.0 % Lymph % (Auto) 14.3 % [place] % (Auto) 6.3 % Eos % (Auto) 0.4 % Baso % (Auto) 0.1 % Immature Gran # (Auto) 0.14 H (0.00-0.02) K/uL Neut # (Auto) 11.94 H (1.4-6.5) K/uL Lymph # (Auto) 2.18 (1.2-3.4) K/uL [place] # (Auto) 0.96 H (0.11-0.59) K/uL Eos # (Auto) 0.06 (0-0.5) K/uL Baso # (Auto) 0.01 (0-0.2) K/uL Blood Type B Positive Antibody Screen NEGATIVE Medications Administered Current Inpatient Medications Benzocaine (Dermoplast Pain Relieving [place]) 1 appln EXT UD PRN PRN Reason: use on skin as needed Stop: 08/14/18 00:18 Cocaine HCl (Supercream 0.870%) 1 gm EXT UD PRN PRN Reason: hemmorrhoidal inflammation Stop: 07/29/18 00:18 Diphenhydramine HCl (Benadryl) 25 mg IV Q6H PRN PRN Reason: pruritis Stop: 07/15/18 17:52 Diphenhydramine HCl (Benadryl) 25 mg IV QID PRN PRN Reason: Itching Stop: 08/14/18 17:52 Diphenhydramine HCl (Benadryl Capsule) 25 mg PO QID PRN PRN Reason: Itching Stop: 08/14/18 17:52 Docusate Sodium (Colace) 100 mg PO BID [facility] Stop: 08/14/18 08:59 Ephedrine Sulfate (Ephedrine Sulfate) 10 mg IV Q5M PRN PRN Reason: Hypotension Stop: 07/15/18 17:52 Ferrous Sulfate (Feosol) 325 mg PO QAM [facility] Stop: 08/14/18 08:59 Hydrocortisone (Anusol Hc) 25 mg [place] BID PRN PRN Reason: Hemorrhoids Stop: 08/14/18 00:18 Hydromorphone HCl (Dilaudid) 0.25 mg IV Q4H PRN PRN Reason: Breakthrough Surgical Pain Stop: 07/15/18 17:53 Last Admin: 07/15/18 02:08 Dose: 0.25 mg Documented by: Acetaminophen (Ofirmev) 1,000 mg in 100 mls @ 400 mls/hr IV Q8H [facility]; Protocol Stop: 08/14/18 01:59 Last Infusion: 07/15/18 00:53 Dose: Infused Documented by: Lactated Ringer's (Lr) 500 mls @ 999 mls/hr IV .Q31M PRN PRN Reason: Hypotension Stop: 07/15/18 17:52 Naloxone HCl 1 mg/ Sodium (Chloride) 1,002.5 mls @ 50 mls/hr IV .Q20H3M PRN PRN Reason: itching or nausea Stop: 07/15/18 17:52 Naloxone HCl 0.08 mg/ Syringe 2 mls @ 1 mls/min IV Q30M PRN; Protocol PRN Reason: Urinary Retention Stop: 07/15/18 17:52 Sodium Chloride (Nss 1000ml) 1,000 mls @ 15 mls/hr IV .Q24H [facility] Stop: 07/15/18 17:52 Lactated Ringer's (Lr) 1,000 mls @ 125 mls/hr IV .Q8H [facility] Stop: 08/14/18 00:18 Oxytocin 30 units/ Lactated (Ringer's) 1,003 mls @ 125 mls/hr IV .Q8H2M [facility] Stop: 07/15/18 08:30 Last Infusion: 07/15/18 02:20 Dose: 125 mls/hr Documented by: Promethazine HCl 25 mg/ Sodium (Chloride) 51 mls @ 204 mls/hr IV Q4H PRN PRN Reason: Nausea And Vomiting Stop: 08/14/18 17:51 Ibuprofen (Motrin) 600 mg PO Q4H PRN PRN Reason: Pain Stop: 08/14/18 00:18 Ketorolac Tromethamine (Toradol) 30 mg IV Q6H PRN PRN Reason: Breakthrough Surgical Pain Stop: 07/15/18 17:53 Ketorolac Tromethamine (Toradol) 30 mg IV Q6H PRN PRN Reason: Pain Stop: 07/20/18 17:51 Labetalol HCl (Normodyne) 200 mg PO BID [facility] Stop: 08/14/18 08:59 Meperidine HCl (Demerol) 50 - 75 mg IV Q4H PRN PRN Reason: Pain Stop: 07/29/18 17:51 Miscellaneous (No Narcotics Or Sedatives) 1 ea N/A UD [facility] Stop: 07/15/18 17:52 Miscellaneous Information (Dc Intraspinal Morphine) 1 ea N/A TODAY@1752 [facility] Stop: 07/15/18 17:53 Nalbuphine HCl (Nubain) 5 mg IV Q10M PRN PRN Reason: itching or nausea Stop: 07/15/18 17:52 Last Admin: 07/15/18 05:30 Dose: 5 mg Documented by: Naloxone HCl (Narcan) 0.1 mg IV UD PRN PRN Reason: Respiratory Depression Stop: 07/15/18 17:52 Nifedipine (Procardia Xl) 120 mg PO QAM [facility] Stop: 08/13/18 08:59 Last Admin: 07/15/18 05:21 Dose: 120 mg Documented by: Ondansetron HCl (Zofran) 4 mg IV Q6H PRN PRN Reason: Nausea And Vomiting Stop: 07/15/18 17:53 Last Admin: 07/15/18 02:47 Dose: 4 mg Documented by: Ondansetron HCl (Zofran) 4 mg IV Q4H PRN PRN Reason: Nausea And Vomiting Stop: 08/14/18 17:51 Oxycodone/Acetaminophen (Percocet 5mg/325mg) 1 - 2 tab PO Q4H PRN PRN Reason: Pain Stop: 07/29/18 17:51 Prenat Multivit/[place]/Iron/Folic Ac ( Vitamin) 1 tab PO QAM [facility] Stop: 08/14/18 08:59 Simethicone (Mylicon) 80 mg PO QID [facility] Stop: 08/14/18 08:59 Resident Activity Tracking Resident Involvement: Resident Care Provided Care Provided: Adult Hospital Medicine
[2018-07-15 07:21] LABS: Prothrombin Time 9.8 Seconds (9.0-12.0)
[2018-07-15 07:29] LABS: Albumin Level 2.4 gm/dl (3.4-5.0); BUN Creatinine Ratio 10.3 (10-20); Calcium 8.3 mg/dl (8.5-10.1); Creatinine Clr Calc Pharmacy 155.3 ml/min; Est GFR (African American) 139.8; Est GFR (Non-African American) 120.6; Potassium 3.8 mmol/L (3.5-5.1)
[2018-07-15 07:32] LABS: Albumin Globulin Ratio 0.6 (0.9-2); Bilirubin,Total 0.3 mg/dl (0.2-1); Total Protein 6.4 gm/dl (6.4-8.2)
[2018-07-15] MEDS: SIMETHICONE 80 MG CHEW PO SCH ×4 (08:52→20:38)
[2018-07-15] MEDS: PRENATAL VITAMIN 1 TAB PO SCH (08:52)
[2018-07-15] MEDS: FERROUS SULFATE 325 MG TAB PO SCH (08:52)
[2018-07-15] MEDS: DOCUSATE SODIUM 100 MG CAP PO SCH ×2 (08:52→20:40)
[2018-07-15] MEDS ORDERED: LABETALOL HCL 200 MG TAB PO SCH (09:00)
[2018-07-15] MEDS ORDERED: PROMETHAZINE HCL 12.5 MG in SODIUM CHLORIDE 0.9% 50 ML IV STA (09:25)
--- NOTE | 2018-07-15 09:25 | Anesthesiology Progress Note ---
Date of Service July 15, 2018 Anesthesia Post Procedure Vital Signs Vital Signs: Temp Pulse Pulse Resp BP BP BP 07/15/18 06:40 61 158/100 H 07/15/18 06:15 18 07/15/18 06:05 164/102 H 07/15/18 05:35 86 18 175/108 H 166/108 H 07/15/18 05:20 18 07/15/18 04:30 18 07/15/18 02:30 36.8 C 99 H 18 152/93 H 07/15/18 02:20 18 07/15/18 02:10 96 H 07/15/18 02:05 89 07/15/18 02:00 81 07/15/18 01:55 84 07/15/18 01:52 98 H 07/15/18 01:50 89 07/15/18 01:46 85 139/84 07/15/18 01:45 36.5 C 85 18 139/84 07/15/18 01:42 89 07/15/18 01:37 88 07/15/18 01:36 90 150/84 H 07/15/18 01:32 91 H 07/15/18 01:27 88 07/15/18 01:22 94 H 07/15/18 01:17 90 07/15/18 01:16 89 154/94 H 07/15/18 01:15 94 H 18 154/84 H 07/15/18 01:12 92 H 07/15/18 01:07 93 H 07/15/18 01:02 98 H 07/15/18 00:57 97 H 07/15/18 00:52 89 07/15/18 00:47 112 H 07/15/18 00:45 99 H 18 151/97 H 07/15/18 00:42 95 H 07/15/18 00:37 94 H 07/15/18 00:35 91 H 18 141/94 H 07/15/18 00:32 90 07/15/18 00:27 98 H 07/15/18 00:25 95 H 16 140/81 07/15/18 00:22 97 H 07/15/18 00:17 104 H 07/15/18 00:15 80 16 133/70 07/15/18 00:12 83 07/15/18 00:07 94 H 07/15/18 00:06 97 H 18 138/68 07/15/18 00:02 104 H 07/14/18 23:57 94 H 18 136/86 07/14/18 23:52 110 H 07/14/18 23:51 91 H 07/14/18 23:47 88 07/14/18 23:45 36.5 C 90 16 123/77 07/14/18 23:44 88 123/74 07/14/18 23:42 88 07/14/18 22:34 110 H 159/90 H 07/14/18 22:30 104 H 120/89 07/14/18 22:29 106 H 07/14/18 22:28 93 H 150/92 H 07/14/18 22:26 91 H 07/14/18 22:22 91 H 152/90 H 07/14/18 22:21 96 H 07/14/18 22:16 99 H 07/14/18 22:11 102 H 07/14/18 22:07 93 H 150/90 H 07/14/18 22:06 95 H 07/14/18 22:01 91 H 07/14/18 22:00 18 07/14/18 21:56 89 07/14/18 21:52 90 159/92 H 07/14/18 21:51 98 H 07/14/18 21:46 95 H 07/14/18 21:41 93 H 07/14/18 21:37 91 H 157/88 H 07/14/18 21:36 96 H 07/14/18 21:32 89 140/87 07/14/18 21:31 92 H 07/14/18 21:30 18 07/14/18 21:26 97 H 07/14/18 21:21 93 H 07/14/18 21:16 90 07/14/18 21:11 91 H 07/14/18 21:06 92 H 07/14/18 21:01 98 H 07/14/18 21:00 36.5 C 18 07/14/18 20:56 93 H 07/14/18 20:52 92 H 153/90 H 07/14/18 20:51 96 H 07/14/18 20:46 93 H 07/14/18 20:41 92 H 07/14/18 20:37 90 148/76 H 07/14/18 20:36 88 07/14/18 20:31 87 07/14/18 20:26 90 07/14/18 20:22 97 H 157/98 H 07/14/18 20:21 101 H 07/14/18 20:16 96 H 07/14/18 20:11 89 07/14/18 20:07 85 153/95 H 07/14/18 20:06 97 H 07/14/18 20:01 86 07/14/18 19:56 92 H 07/14/18 19:52 105 H 162/101 H 07/14/18 19:51 101 H 07/14/18 19:46 99 H 07/14/18 19:41 93 H 07/14/18 19:37 95 H 152/93 H 07/14/18 19:36 85 07/14/18 19:35 94 H 152/94 H 07/14/18 19:33 96 H 151/94 H 07/14/18 19:31 82 160/97 H 07/14/18 19:29 93 H 155/96 H 07/14/18 19:27 99 H 153/98 H 07/14/18 19:26 97 H 07/14/18 19:25 86 145/90 H 07/14/18 19:23 86 147/92 H 07/14/18 19:21 84 142/86 H 07/14/18 19:19 36.6 C 88 18 153/91 H 07/14/18 19:17 82 158/92 H 07/14/18 19:16 86 07/14/18 19:15 85 153/89 H 07/14/18 19:13 81 151/89 H 07/14/18 19:11 94 H 145/84 H 07/14/18 19:09 85 147/91 H 07/14/18 19:07 88 152/91 H 07/14/18 19:06 94 H 07/14/18 19:05 88 155/97 H 07/14/18 19:04 92 H 153/95 H 07/14/18 19:01 103 H 156/90 H 07/14/18 18:59 94 H 159/98 H 07/14/18 18:57 93 H 176/107 H 07/14/18 18:56 93 H 07/14/18 18:51 98 H 07/14/18 18:46 110 H 07/14/18 18:41 116 H 07/14/18 18:37 90 163/100 H 07/14/18 18:36 97 H 07/14/18 18:34 95 H 175/103 H 07/14/18 18:31 92 H 07/14/18 18:26 95 H 07/14/18 18:21 93 H 07/14/18 18:16 92 H 07/14/18 18:11 93 H 07/14/18 18:06 99 H 07/14/18 18:01 91 H 07/14/18 17:56 89 07/14/18 17:51 91 H 07/14/18 17:46 90 07/14/18 17:41 89 07/14/18 17:36 84 07/14/18 17:31 90 07/14/18 17:26 85 07/14/18 17:21 86 07/14/18 17:20 81 172/99 H 07/14/18 17:19 36.9 C 20 07/14/18 16:38 84 157/94 H 07/14/18 15:39 86 141/89 H 07/14/18 14:35 36.6 C 96 H 20 133/87 07/14/18 13:22 36.6 C 103 H 18 140/84 07/14/18 12:15 99 H 146/85 H 07/14/18 11:18 36.8 C 94 H 20 161/87 H 07/14/18 10:12 90 133/91 07/14/18 09:30 96 H 139/79 07/14/18 09:29 36.8 C 20 Pulse Ox 07/15/18 06:40 07/15/18 06:15 99 07/15/18 06:05 07/15/18 05:35 99 07/15/18 05:20 98 07/15/18 04:30 99 07/15/18 02:30 97 07/15/18 02:20 99 07/15/18 02:10 95 07/15/18 02:05 93 07/15/18 02:00 96 07/15/18 01:55 96 07/15/18 01:52 94 07/15/18 01:50 96 07/15/18 01:46 07/15/18 01:45 97 07/15/18 01:42 97 07/15/18 01:37 97 07/15/18 01:36 07/15/18 01:32 97 07/15/18 01:27 98 07/15/18 01:22 98 07/15/18 01:17 98 07/15/18 01:16 07/15/18 01:15 99 07/15/18 01:12 99 07/15/18 01:07 98 07/15/18 01:02 99 07/15/18 00:57 98 07/15/18 00:52 99 07/15/18 00:47 99 07/15/18 00:45 99 07/15/18 00:42 99 07/15/18 00:37 99 07/15/18 00:35 99 07/15/18 00:32 99 07/15/18 00:27 99 07/15/18 00:25 99 07/15/18 00:22 99 07/15/18 00:17 100 07/15/18 00:15 100 07/15/18 00:12 99 07/15/18 00:07 100 07/15/18 00:06 100 07/15/18 00:02 100 07/14/18 23:57 100 07/14/18 23:52 55 L 07/14/18 23:51 89 L 07/14/18 23:47 100 07/14/18 23:45 100 07/14/18 23:44 07/14/18 23:42 100 07/14/18 22:34 99 07/14/18 22:30 07/14/18 22:29 98 07/14/18 22:28 07/14/18 22:26 98 07/14/18 22:22 07/14/18 22:21 99 07/14/18 22:16 97 07/14/18 22:11 98 07/14/18 22:07 07/14/18 22:06 97 07/14/18 22:01 97 07/14/18 22:00 07/14/18 21:56 99 07/14/18 21:52 07/14/18 21:51 98 07/14/18 21:46 99 07/14/18 21:41 98 07/14/18 21:37 07/14/18 21:36 99 07/14/18 21:32 07/14/18 21:31 99 07/14/18 21:30 07/14/18 21:26 99 07/14/18 21:21 98 07/14/18 21:16 98 07/14/18 21:11 98 07/14/18 21:06 98 07/14/18 21:01 98 07/14/18 21:00 07/14/18 20:56 98 07/14/18 20:52 07/14/18 20:51 98 07/14/18 20:46 98 07/14/18 20:41 98 07/14/18 20:37 07/14/18 20:36 99 07/14/18 20:31 98 07/14/18 20:26 98 07/14/18 20:22 07/14/18 20:21 98 07/14/18 20:16 98 07/14/18 20:11 98 07/14/18 20:07 07/14/18 20:06 98 07/14/18 20:01 98 07/14/18 19:56 98 07/14/18 19:52 07/14/18 19:51 99 07/14/18 19:46 99 07/14/18 19:41 99 07/14/18 19:37 07/14/18 19:36 98 07/14/18 19:35 07/14/18 19:33 07/14/18 19:31 99 07/14/18 19:29 07/14/18 19:27 07/14/18 19:26 99 07/14/18 19:25 07/14/18 19:23 07/14/18 19:21 98 07/14/18 19:19 07/14/18 19:17 07/14/18 19:16 99 07/14/18 19:15 07/14/18 19:13 07/14/18 19:11 98 07/14/18 19:09 07/14/18 19:07 07/14/18 19:06 98 07/14/18 19:05 07/14/18 19:04 07/14/18 19:01 99 07/14/18 18:59 07/14/18 18:57 07/14/18 18:56 99 07/14/18 18:51 98 07/14/18 18:46 99 07/14/18 18:41 98 07/14/18 18:37 07/14/18 18:36 99 07/14/18 18:34 07/14/18 18:31 99 07/14/18 18:26 98 07/14/18 18:21 99 07/14/18 18:16 98 07/14/18 18:11 99 07/14/18 18:06 99 07/14/18 18:01 98 07/14/18 17:56 99 07/14/18 17:51 98 07/14/18 17:46 99 07/14/18 17:41 99 07/14/18 17:36 100 07/14/18 17:31 99 07/14/18 17:26 99 07/14/18 17:21 99 07/14/18 17:20 07/14/18 17:19 07/14/18 16:38 07/14/18 15:39 07/14/18 14:35 07/14/18 13:22 07/14/18 12:15 07/14/18 11:18 07/14/18 10:12 07/14/18 09:30 07/14/18 09:29 Pain Intensity Bilateral Lower Abdomen: Pain Intensity: 1 Notes Mental Status: alert / awake / arousable Patient Amnestic to Procedure: Yes Nausea / Vomiting: improving with treatment Pain: adequately controlled Airway Patency, RR, SpO2: stable & adequate BP & HR: stable & adequate and see Notes below Hydration State: stable & adequate Neuraxial Anesthesia: was administered and sensory block resolved Anesthetic Complications: no major complications apparent and Pt Satisfied with anesthetic care Notes: The patient has been treated for ongoing hypertension. Her pain control is good, but she continues to have some nausea. Phenergan 12.5 mg IV will be given.
[2018-07-15] MEDS ORDERED: PROMETHAZINE HCL 25 MG in SODIUM CHLORIDE 0.9% 50 ML IV PRN (17:52)
[2018-07-15] MEDS ORDERED: DC INTRASPINAL MORPHINE SCH (17:52)
[2018-07-15] MEDS ORDERED: KETOROLAC 30 MG/ML VIAL IV PRN (17:52)
[2018-07-15] MEDS ORDERED: MEPERIDINE HCL 50 MG/ML CARP IV PRN (17:52)
[2018-07-15] MEDS ORDERED: ONDANSETRON INJ 2 MG/ML 2 ML VIAL IV PRN (17:52)
[2018-07-15] MEDS ORDERED: DiphenhydrAMINE HCL 50 MG/ML VIAL IV PRN (17:53)
[2018-07-15] MEDS: IBUPROFEN 600 MG TAB PO PRN (23:45)
[2018-07-16] MEDS ORDERED: Nursing to Pharmacy Communication ONE (00:18)
[2018-07-16] MEDS: OXYCODONE/ACETAMINOPHEN 5mg/325mg TAB PO PRN ×5 (04:55→22:23)
[2018-07-16] MEDS: IBUPROFEN 600 MG TAB PO PRN ×5 (04:56→22:24)
[2018-07-16 06:21] LABS: Hematocrit (blood only) 26.2 % (37-47); Hemoglobin 8.6 g/dL (12.0-16.0)
--- NOTE | 2018-07-16 07:59 | Obstetrical Progress Note ---
Date of Service July 16, 2018 Assessment & Plan (1) S/P : 33yo pod2 s/p 2/2 to maternal request after prolonged IOL -Normotensive since 11:56 yesterday, currently 113/70 T36.7 -Pt is now asyx denies nausea, H/A, RUQ pain, vision changes, palpitations, chest pain -Continue Procardia 120 mg qam, 200 mg labetalol BID -cmp & pt/inr from yesterday unremarable -monitor bps and be on alert for si/sx -Hemoglobin ppd2 8.6, ppd1 10.4 down from 11.1 on admission. -Pt is doing clinically well -Continue to encourage ambulation as tolerated, Monitor and control pain with Motrin, toradol, oxycodone q4h prn. -Reg Ob Diet -Plan is to breast feed and supplement as needed -Routine post op care Supervising Physician Co-Signing Physician Notes Resident Physician Supervision Note: I interviewed and examined the patient. Discussed with Dr. Richard Blair. and agree with findings and plan as documented in the note. Any exceptions or clarifications are listed here: [None] Documented By: Jocelynn Ruelas MD, FACOG Subjective Pt resting in bed with dad laying in the chair bed. Overnight pt was normotensive and syx resolved with denied nausea, H/A, chest pain, palpitations, vision changes, and RUQ pain. Otherwise pt is doing well, she reports minimal pain. Passed TOV, no bm, some ambulation, tolerating diet. No current concerns Physical Exam Vital Signs (Past 24 Hours): Last Vital Signs Temp 36.7 C 07/15/18 23:25 Pulse 83 07/15/18 23:25 Resp 16 07/15/18 23:25 BP 113/70 07/15/18 23:25 Pulse Ox 95 07/15/18 23:25 Constitutional: WD/WN, vitals as above Eyes: normal visual basilio by confrontation Respiratory: normal respiratory effort, lungs clear to auscultation Cardiovascular: RRR, no murmur, no edema Extremities: no calf tenderness Gastrointestinal (Abdomen): normal bowel sounds, soft, nontender, no hepatosplenomegaly (Surgical site clean, dry, intact. Uterus is firm ) Skin: no rashes, warm and dry Results & Data Laboratory Results 07/16/18 Range/Units 06:05 Hgb 8.6 L (12.0-16.0) g/dL Hct 26.2 L (37-47) % Medications Administered Current Inpatient Medications Benzocaine (Dermoplast Pain Relieving [place]) 1 appln EXT UD PRN PRN Reason: use on skin as needed Stop: 08/14/18 00:18 Cocaine HCl (Supercream 0.870%) 1 gm EXT UD PRN PRN Reason: hemmorrhoidal inflammation Stop: 07/29/18 00:18 Diphenhydramine HCl (Benadryl) 25 mg IV QID PRN PRN Reason: Itching Stop: 08/14/18 17:52 Diphenhydramine HCl (Benadryl Capsule) 25 mg PO QID PRN PRN Reason: Itching Stop: 08/14/18 17:52 Docusate Sodium (Colace) 100 mg PO BID [facility] Stop: 08/14/18 08:59 Last Admin: 07/15/18 20:40 Dose: 100 mg Documented by: Ferrous Sulfate (Feosol) 325 mg PO QAM [facility] Stop: 08/14/18 08:59 Last Admin: 07/15/18 08:52 Dose: Not Given Documented by: Hydrocortisone (Anusol Hc) 25 mg CA BID PRN PRN Reason: Hemorrhoids Stop: 08/14/18 00:18 Lactated Ringer's (Lr) 1,000 mls @ 125 mls/hr IV .Q8H [facility] Stop: 08/14/18 00:18 Last Infusion: 07/15/18 18:36 Dose: Infused Documented by: Promethazine HCl 25 mg/ Sodium (Chloride) 51 mls @ 204 mls/hr IV Q4H PRN PRN Reason: Nausea And Vomiting Stop: 08/14/18 17:51 Last Admin: 07/15/18 09:44 Dose: 204 mls/hr Documented by: Ibuprofen (Motrin) 600 mg PO Q4H PRN PRN Reason: Pain Stop: 08/14/18 00:18 Last Admin: 07/16/18 04:56 Dose: 600 mg Documented by: Ketorolac Tromethamine (Toradol) 30 mg IV Q6H PRN PRN Reason: Pain Stop: 07/20/18 17:51 Labetalol HCl (Normodyne) 200 mg PO BID [facility] Stop: 08/14/18 08:59 Last Admin: 07/15/18 20:38 Dose: 200 mg Documented by: Meperidine HCl (Demerol) 50 - 75 mg IV Q4H PRN PRN Reason: Pain Stop: 07/29/18 17:51 Nifedipine (Procardia Xl) 120 mg PO QAM [facility] Stop: 08/13/18 08:59 Last Admin: 07/15/18 05:21 Dose: 120 mg Documented by: Ondansetron HCl (Zofran) 4 mg IV Q4H PRN PRN Reason: Nausea And Vomiting Stop: 08/14/18 17:51 Oxycodone/Acetaminophen (Percocet 5mg/325mg) 1 - 2 tab PO Q4H PRN PRN Reason: Pain Stop: 07/29/18 17:51 Last Admin: 07/16/18 04:55 Dose: 1 tab Documented by: Prenat Multivit/[place]/Iron/Folic Ac ( Vitamin) 1 tab PO QAM [facility] Stop: 08/14/18 08:59 Last Admin: 07/15/18 08:52 Dose: Not Given Documented by: Simethicone (Mylicon) 80 mg PO QID [facility] Stop: 08/14/18 08:59 Last Admin: 07/15/18 20:38 Dose: 80 mg Documented by: Resident Activity Tracking Resident Involvement: Resident Care Provided Care Provided: Adult Hospital Medicine
[2018-07-16] MEDS: PRENATAL VITAMIN 1 TAB PO SCH (08:50)
[2018-07-16] MEDS: NIFEdipine EXTENDED REL 30 MG TABCR PO SCH (08:50)
[2018-07-16] MEDS: DOCUSATE SODIUM 100 MG CAP PO SCH ×2 (08:50→20:37)
[2018-07-16] MEDS: SIMETHICONE 80 MG CHEW PO SCH ×3 (08:50→20:37)
[2018-07-16] MEDS: FERROUS SULFATE 325 MG TAB PO SCH (08:50)
[2018-07-16] MEDS: LABETALOL HCL 200 MG TAB PO SCH ×2 (08:50→20:38)
[2018-07-17] MEDS: IBUPROFEN 600 MG TAB PO PRN ×5 (02:39→21:20)
[2018-07-17] MEDS: OXYCODONE/ACETAMINOPHEN 5mg/325mg TAB PO PRN ×5 (02:39→21:19)
--- NOTE | 2018-07-17 07:03 | Obstetrical Progress Note ---
Date of Service July 17, 2018 Assessment & Plan (1) S/P : 33yo pod3 s/p 2/2 to maternal request after prolonged IOL -Normotensive since 11:56 3/5, currently 121/77 T36.7 -Pt is now asyx denies nausea, H/A, RUQ pain, vision changes, palpitations, chest pain -Continue Procardia 120 mg qam, 200 mg labetalol BID -post cmp & pt/inr unremarkable -monitor bps and be on alert for si/sx -Hemoglobin pod2 8.6, pod1 10.4 down from 11.1 on admission. -Pt is doing clinically well -Continue to encourage ambulation as tolerated, Monitor and control pain with Motrin, toradol, oxycodone q4h prn. -Reg Ob Diet -incision Clean Dry and intact -Continue to support and encourage breast feeding -no more n/v tolerating diet -Counseled patient on discharge instructions including Vaginal bleeding, fevers, followup, lifting restrictions, breast feeding, vitamins, and nothing in the vagina for 6 weeks. Pt was agreeable -Plan for d/c today Supervising Physician Co-Signing Physician Notes I have seen/examined patient. I have read above note performed by resident and I agree with above. Any changes/additions are as follows: POD#3 doing well. Would like discharge tomorrow, as baby is staying until then. Prescriptions prepared for patient: Nifedipine 120mg, Labetalol 200mg BID, Percocet. Lucinda Street DO [facility] Subjective Pt resting in bed with dad laying in the chair bed. Pt Continues to be normotensive and syx have resolved. She denies nausea, H/A, chest pain, palpitations, vision changes, and RUQ pain. Otherwise pt is doing well, she reports minimal pain. voiding, no bm, some ambulation, tolerating diet. Pt had increasing perincisional pain last night resolving with 2 percocets. This morning she endorse similar pain but not as intense. No current concerns Physical Exam Vital Signs (Past 24 Hours): Last Vital Signs Temp 36.3 C L 07/16/18 23:40 Pulse 91 H 07/16/18 23:40 Resp 18 07/16/18 23:40 BP 121/77 07/16/18 23:40 Pulse Ox 97 07/16/18 17:16 Constitutional: WD/WN, vitals as above Eyes: normal visual basilio by confrontation Respiratory: normal respiratory effort, lungs clear to auscultation Cardiovascular: RRR, no murmur, no edema Extremities: no calf tenderness Gastrointestinal (Abdomen): normal bowel sounds, soft, nontender, no hepatosplenomegaly (Surgical site clean, dry, intact. Uterus is firm ) Skin: no rashes, warm and dry Results & Data Medications Administered Current Inpatient Medications Benzocaine (Dermoplast Pain Relieving Rinard) 1 appln EXT UD PRN PRN Reason: use on skin as needed Stop: 08/14/18 00:18 Cocaine HCl (Supercream 0.870%) 1 gm EXT UD PRN PRN Reason: hemmorrhoidal inflammation Stop: 07/29/18 00:18 Diphenhydramine HCl (Benadryl) 25 mg IV QID PRN PRN Reason: Itching Stop: 08/14/18 17:52 Diphenhydramine HCl (Benadryl Capsule) 25 mg PO QID PRN PRN Reason: Itching Stop: 08/14/18 17:52 Docusate Sodium (Colace) 100 mg PO BID [facility] Stop: 08/14/18 08:59 Last Admin: 07/16/18 20:37 Dose: 100 mg Documented by: Ferrous Sulfate (Feosol) 325 mg PO QAM [facility] Stop: 08/14/18 08:59 Last Admin: 07/16/18 08:50 Dose: 325 mg Documented by: Hydrocortisone (Anusol Hc) 25 mg GA BID PRN PRN Reason: Hemorrhoids Stop: 08/14/18 00:18 Lactated Ringer's (Lr) 1,000 mls @ 125 mls/hr IV .Q8H [facility] Stop: 08/14/18 00:18 Last Infusion: 07/15/18 18:36 Dose: Infused Documented by: Promethazine HCl 25 mg/ Sodium (Chloride) 51 mls @ 204 mls/hr IV Q4H PRN PRN Reason: Nausea And Vomiting Stop: 08/14/18 17:51 Last Admin: 07/15/18 09:44 Dose: 204 mls/hr Documented by: Ibuprofen (Motrin) 600 mg PO Q4H PRN PRN Reason: Pain Stop: 08/14/18 00:18 Last Admin: 07/17/18 02:39 Dose: 600 mg Documented by: Ketorolac Tromethamine (Toradol) 30 mg IV Q6H PRN PRN Reason: Pain Stop: 07/20/18 17:51 Labetalol HCl (Normodyne) 200 mg PO BID [facility] Stop: 08/14/18 08:59 Last Admin: 07/16/18 20:38 Dose: 200 mg Documented by: Meperidine HCl (Demerol) 50 - 75 mg IV Q4H PRN PRN Reason: Pain Stop: 07/29/18 17:51 Nifedipine (Procardia Xl) 120 mg PO QAM [facility] Stop: 08/13/18 08:59 Last Admin: 07/16/18 08:50 Dose: 120 mg Documented by: Ondansetron HCl (Zofran) 4 mg IV Q4H PRN PRN Reason: Nausea And Vomiting Stop: 08/14/18 17:51 Oxycodone/Acetaminophen (Percocet 5mg/325mg) 1 - 2 tab PO Q4H PRN PRN Reason: Pain Stop: 07/29/18 17:51 Last Admin: 07/17/18 02:39 Dose: 2 tab Documented by: Prenat Multivit/[place]/Iron/Folic Ac ( Vitamin) 1 tab PO QAM [facility] Stop: 08/14/18 08:59 Last Admin: 07/16/18 08:50 Dose: 1 tab Documented by: Simethicone (Mylicon) 80 mg PO QID [facility] Stop: 08/14/18 08:59 Last Admin: 07/16/18 20:37 Dose: 80 mg Documented by: Resident Activity Tracking Resident Involvement: Resident Care Provided Care Provided: Adult Hospital Medicine
[2018-07-17] MEDS: DOCUSATE SODIUM 100 MG CAP PO SCH ×2 (08:51→21:13)
[2018-07-17] MEDS: PRENATAL VITAMIN 1 TAB PO SCH (08:51)
[2018-07-17] MEDS: FERROUS SULFATE 325 MG TAB PO SCH (08:52)
[2018-07-17] MEDS: LABETALOL HCL 200 MG TAB PO SCH ×2 (08:52→21:15)
[2018-07-17] MEDS: SIMETHICONE 80 MG CHEW PO SCH ×5 (08:52→21:19)
[2018-07-17] MEDS: NIFEdipine EXTENDED REL 30 MG TABCR PO SCH (08:53)
[2018-07-18] MEDS: IBUPROFEN 600 MG TAB PO PRN ×4 (03:27→18:48)
[2018-07-18] MEDS: OXYCODONE/ACETAMINOPHEN 5mg/325mg TAB PO PRN ×3 (03:27→11:11)
--- NOTE | 2018-07-18 07:27 | Obstetrical Progress Note ---
Date of Service July 18, 2018 Assessment & Plan (1) S/P : 33yo pod3 s/p 2/2 to maternal request after prolonged IOL -Normotensive since 11:56 3/5, currently 121/77 T36.7 -Pt is now asyx denies nausea, H/A, RUQ pain, vision changes, palpitations, chest pain -Continue Procardia 120 mg qam, 200 mg labetalol BID -post cmp & pt/inr unremarkable -monitor bps and be on alert for si/sx -Hemoglobin pod2 8.6, pod1 10.4 down from 11.1 on admission. -Pt is doing clinically well -Continue to encourage ambulation as tolerated, Monitor and control pain with Motrin, toradol, oxycodone q4h prn. -Reg Ob Diet -incision Clean Dry and intact -Continue to support and encourage breast feeding -no more n/v tolerating diet -Counseled patient on discharge instructions including Vaginal bleeding, fevers, followup, lifting restrictions, breast feeding, vitamins, and nothing in the vagina for 6 weeks. Pt was agreeable -Plan for d/c today Supervising Physician Co-Signing Physician Notes Patient seen and agree with the above assessment and plan Subjective Pt resting in bed with dad sleeping in the chair bed. Pt Continues to be normotensive and syx asyx. She denies nausea, H/A, chest pain, palpitations, vision changes, and RUQ pain. Otherwise pt is doing well, she reports minimal pain. voiding, no bm, ambulating well, and tolerating diet. No current concerns pain is well controlled Physical Exam Vital Signs (Past 24 Hours): Last Vital Signs Temp 36.5 C 07/17/18 23:55 Pulse 82 07/17/18 23:55 Resp 18 07/17/18 23:55 BP 122/68 07/17/18 23:55 Pulse Ox 97 07/17/18 23:55 Constitutional: WD/WN, vitals as above Eyes: normal visual basilio by confrontation Respiratory: normal respiratory effort, lungs clear to auscultation Cardiovascular: RRR, no murmur, no edema Extremities: no calf tenderness Gastrointestinal (Abdomen): normal bowel sounds, soft, nontender, no hepatosplenomegaly (Surgical site clean, dry, intact. Uterus is firm 1 hand b elow umbilicus) Skin: no rashes, warm and dry Resident Activity Tracking Resident Involvement: Resident Care Provided Care Provided: Adult Hospital Medicine
[2018-07-18] MEDS: DOCUSATE SODIUM 100 MG CAP PO SCH (08:50)
[2018-07-18] MEDS: PRENATAL VITAMIN 1 TAB PO SCH (08:52)
[2018-07-18] MEDS: FERROUS SULFATE 325 MG TAB PO SCH (08:52)
[2018-07-18] MEDS: SIMETHICONE 80 MG CHEW PO SCH ×3 (08:52→18:48)
[2018-07-18] MEDS: NIFEdipine EXTENDED REL 30 MG TABCR PO SCH (08:53)
--- NOTE | 2018-07-19 22:18 | Discharge Summary ---
Date of Service July 25, 2018 Admission HPI Per Admitting Provider Ella, with superimposed preeclampsia. Discharge Data Procedures Performed Operation Date: 07/14/18 20:00 Actual Procedures p Section in LD. Low Transverse uterine incision for live male infant at 2259 on 07/14/2018. - Skylar Alvarado MD Hospital Course (1) S/P : Patient underwent uncomplicated delivery on maternal request. She was managed with her home dose of 120mg procardia daily as well as Labetalol 200mg PO BID and will be seen for BP check in 1 week post op.
== END 2018-07-18 20:00 | disposition home or self-care (01) ==
LOC: OPB 20:04 → 4S1 20:05 → 4S2 07-15 02:43

== ENCOUNTER 2019-07-08 09:41 | Observation (INO) ==
--- NOTE | 2019-07-07 09:47 | Anesthesiology Consultation ---
Date of Service July 07, 2019 Assessment & Plan (1) Encounter for pre-operative examination: Chart Review Chart Review: Acceptable Risk for Surgery (pending CBC and PRP DOS and evaluation by anesthesiolgist) and Patient NOT seen in Pre Admission Testing Pt is add on case for OR tomorrow. Will need CBC with diff and PRP AM of surgery. No significant noted CVD with exception to HTN. Will leave to anesthesiologist discretion after patient evaluation if EKG needed - Check test AM DOS History Surgery Operation Date: 07/08/19 11:30 Proposed Procedures p Left Axillary Incision, Drainage and Debridement of Abscess - Yasmani Tavera MD, FACS Height/Weight Height: 5 ft 7 in Weight: 80.286 kg Allergies Allergy/AdvReac Type Severity Reaction Status Date / Time No Known Allergies Allergy Verified 07/07/19 09:53 Medications Home Medications Medication Instructions Recorded Confirmed Last Taken lisinopril 20 2 tab PO DAILY #90 tab 04/24/19 07/07/19 Unknown mg-hydrochlorothiazide 12.5 mg tablet cephalexin 500 mg capsule 500 mg PO TID 10 Days #30 cap 06/30/19 07/07/19 Unknown Past Medical History Medical History (Updated 07/07/19 @ 10:16 by Karlie Joyner PA-C) Alopecia GERD without esophagitis Takes famotidine PRN Hyperlipidemia Diet controlled Hypertension, benign Dxed at 23 y/o; renal artery doppler 11/2017 showed <60% stenosis to right and left renal arteries. Nausea and vomiting after administration of anesthetic agent Vitamin D deficiency Past Family History Family History Mother Hypothyroid Gestational diabetes Hypertension Father High cholesterol Myocardial infarction Grandmother Hypertension Stroke Brother Diabetes Grandfather Diabetes Past Surgical History Surgical History History of cholecystectomy 2007 History of tonsillectomy at age 8 S/P X1 [place] teeth removed 2011 Social History Smoking Status: Never smoker Hx Alcohol Use: No Hx Substance Use: No
[~2019-07-08 09:41] MED LIST changes: -CALCIUM PO; +CEFAZOLIN 2000MG 2,000 MG/15 ML SYR IV SCH; -CHOL100026 PO; -DESO1TAB33 PO; -FERR325T74 PO; -LISI-787 PO; +LR 15ML/HR IV SCH; -PANT40TA PO
[2019-07-08 10:35] LABS: Basophils # (auto) 0.03 K/uL (0-0.2); Basophils % (auto) 0.2 %; Eosinophils # (auto) 0.27 K/uL (0-0.5); Eosinophils % (auto) 2.2 %; Hematocrit (blood only) 39.1 % (37-47); Hemoglobin 13.4 g/dL (12.0-16.0); Immature Granulocytes # (auto) 0.08 K/uL (0.00-0.02); Immature Granulocytes % (auto) 0.7 %; Lymphocytes % (auto) 23.3 %; Mean Corpuscular Hemoglobin 29.6 pg (25-34); Mean Corpuscular Volume 86.5 fL (80-100); Mean Platelet Volume 10.1 fL (7.4-10.4); Monocytes # (auto) 0.71 K/uL (0.11-0.59); Monocytes % (auto) 5.9 %; Neutrophils # (auto) 8.13 K/uL (1.4-6.5); Neutrophils % (auto) 67.7 %; Platelet Count 309 K/uL (130-400); RDW Standard Deviation 41.2 fL (36.4-46.3); Red Blood Count 4.52 M/uL (4.2-5.4); White Blood Count 12.02 K/uL (4.8-10.8)
[2019-07-08] MEDS ORDERED: LIDOCAINE HCL 1% 20 ML VIAL ONE (10:45)
[2019-07-08] MEDS ORDERED: BUPIVACAINE 0.5 % 5 MG/1 ML MPF 30ML VIAL ONE (10:47)
[2019-07-08 10:48] LABS: Mean Corpuscular Hgb Conc 34.3 g/dL (32-36)
[2019-07-08 10:54] LABS: Est GFR (African American) 101.4; Est GFR (Non-African American) 87.5; Potassium 3.8 mmol/L (3.5-5.1)
[2019-07-08 10:55] LABS: BUN Creatinine Ratio 9.6 (10-20); Calcium 9.1 mg/dl (8.5-10.1)
--- NOTE | 2019-07-08 11:26 | History & Physical Bridge Note ---
Date of Service July 08, 2019 History & Physical Bridge Note I have examined the patient, reviewed the History & Physical and in the interval since the performance of the History & Physical I have noted the following changes of clinical significance: no changes noted
[2019-07-08] MEDS ORDERED: fentaNYL citrate 100 MCG/2 ML VIAL ONE ×2 (11:27→12:29)
[2019-07-08] MEDS ORDERED: MIDAZOLAM HCL 1 MG/ML 2ML VIAL ONE (11:27)
[2019-07-08] MEDS ORDERED: DEXAMETHASONE SOD INJ 4 MG/ML VIAL ONE (11:46)
[2019-07-08] MEDS ORDERED: LIDOCAINE HCL 2% 2 ML VIAL/AMP(20MG/ML) INFIL ONE (11:46)
[2019-07-08] MEDS ORDERED: ONDANSETRON INJ 2 MG/ML 2 ML VIAL ONE (11:46)
[2019-07-08] MEDS ORDERED: PROPOFOL IV EMULSION 10 MG/ML 20 ML VIAL IV ONE (11:46)
--- NOTE | 2019-07-08 12:16 | Post Operative Brief Note ---
PG Immediate Post Op with CF Date of Surgery July 08, 2019 Pre & Post Diagnosis Operation Date: 07/08/19 11:30 Pre-Op Diagnosis: Left Axillary Abscess Post-Op Diagnosis: Left Axillary Abscess I identified the patient and participated in the time-out.: Yes Procedure Operation Date: 07/08/19 11:30 Actual Procedures p Left Axillary Incision, Drainage and Debridement of Abscess(Left) - Yasmani Tavera MD, FACS Surgeon Yasmani Tavera MD, FACS Poultry Farm Worker Maria Teresa Sandhu Estimated Blood Loss 20 Findings Consistent with Post-Op Diagnosis Specimens Specimen Description: culture of left axilla abcess Drains Felipe Drain
[2019-07-08] MEDS ORDERED: ACETAMINOPHEN 1,000 MG/100 ML VIAL IV STA (12:17)
[2019-07-08] MEDS ORDERED: PROMETHAZINE HCL 12.5 MG in SODIUM CHLORIDE 0.9% 50 ML IV PRN ×2 (12:30→14:09)
[2019-07-08] MEDS ORDERED: ePHEDrine sulfate 50 MG/ML AMP IV PRN (12:30)
[2019-07-08] MEDS ORDERED: FLUMAZENIL 0.1 MG/1 ML 10 ML VIAL IV PRN (12:30)
[2019-07-08] MEDS ORDERED: ONDANSETRON INJ 2 MG/ML 2 ML VIAL IV PRN ×2 (12:30→14:09)
[2019-07-08] MEDS ORDERED: LABETALOL HCL IV 5 MG/ML 20ML IV PRN (12:30)
[2019-07-08] MEDS ORDERED: ATROPINE SULFATE 0.1 MG/ML 10ML SYR IV PRN (12:30)
[2019-07-08] MEDS ORDERED: NALOXONE HCL 0.4 MG/1 ML VIAL/CARP IV PRN (12:30)
--- NOTE | 2019-07-08 12:38 | Operative Report ---
DATE OF OPERATION: 07/08/2019 NAME OF OPERATION: Incision, drainage and debridement of left axillary abscess with culture. STAFF SURGEON: Yasmani Tavera MD DREDGE RUNNER: Amadeo Sandhu PA-C. ANESTHESIA: General. DESCRIPTION OF PROCEDURE: The patient was brought in the operating room and placed on the operating table in supine position. After appropriate anesthetic, her left arm was extended on an arm board. Her left axilla prepped and draped. My geological survey field assistant helped with prepping, draping, incision, drainage and debridement of the abscess and closure of the wound. The patient had several areas of fluctuance with swelling and erythema in the axilla. A T-shaped incision was made transversely and then cephalocaudad encountering a large pocket of purulent fluid which was under pressure and this was cultured. At this point, gentle debridement was performed. It was 1 large abscess cavity and not microabscesses. The site again was cultured. After appropriate hemostasis the skin was partially reapproximated using 4-0 nylon suture and a Felipe drain brought out 3 different sites of the cavity. Dressing applied and patient transferred to recovery room in stable condition. I attest to the content of the Intraoperative Record and any orders documented therein. Any exception s are noted below.
[2019-07-08] MEDS: fentaNYL citrate 100 MCG/2 ML VIAL IV PRN ×3 (12:43→13:07)
--- NOTE | 2019-07-08 13:20 | Anesthesiology Progress Note ---
Date of Service July 08, 2019 Anesthesia Post Procedure Vital Signs Vital Signs: Temp Pulse Resp BP Pulse Ox 07/08/19 13:10 37.0 C 86 16 127/76 98 07/08/19 13:00 83 16 132/80 98 07/08/19 12:50 85 16 126/78 98 07/08/19 12:40 74 12 121/78 100 07/08/19 12:30 82 14 120/78 100 07/08/19 12:22 37.1 C 76 20 121/76 100 07/08/19 10:31 37.3 C 105 H 20 141/98 H 100 Pain Intensity Left Axilla: Pain Intensity: 1 Transfer of Care Handoff Completed per policy Notes Mental Status: alert / awake / arousable Patient Amnestic to Procedure: Yes Nausea / Vomiting: adequately controlled Pain: adequately controlled Airway Patency, RR, SpO2: stable & adequate BP & HR: stable & adequate Hydration State: stable & adequate Anesthetic Complications: no major complications apparent
[2019-07-08] MEDS ORDERED: HYDROCODONE/ACETAMOPHEN 5/325MG TAB PO PRN ×2 (14:09)
[2019-07-08] MEDS ORDERED: MoRPHine SULFATE 2 MG/ML CARP IV PRN ×2 (14:09)
[2019-07-08] MEDS ORDERED: IBUPROFEN 600 MG TAB PO PRN (14:09)
[2019-07-08] MEDS ORDERED: PROMETHAZINE HCL 25 MG in SODIUM CHLORIDE 0.9% 50 ML IV PRN (14:09)
[2019-07-08] MEDS ORDERED: PIPERACILL/TAZOBAC CONSULT ACTIVE PRN (14:09)
[2019-07-08] MEDS ORDERED: PIPERACILLIN/TAZOBACTAM 4.5 GM in DEXTROSE 5% 100 ML IV ONE (14:45)
[2019-07-08] MEDS: PIPERACILLIN/TAZOBACTAM 3.375 GM in DEXTROSE 5% 100 ML IV SCH (20:49)
[2019-07-09] MEDS: PIPERACILLIN/TAZOBACTAM 3.375 GM in DEXTROSE 5% 100 ML IV SCH ×3 (04:24→20:34)
[2019-07-09] MEDS: ACETAMINOPHEN 325 MG TAB PO PRN ×3 (05:56→20:32)
--- NOTE | 2019-07-09 06:14 | Surgery Progress Note ---
Date of Service July 09, 2019 Assessment & Plan (1) Abscess of axilla, left: Patient is doing well Dressing is being changed She is afebrile We will continue with IV antibiotics today And wound care Plan on discharge tomorrow Results & Data Vital Signs (Past 12 Hours) Vital Signs Temp Pulse Resp BP Pulse Ox 07/09/19 03:30 36.9 C 69 22 110/72 97 07/08/19 23:30 36.9 C 88 20 111/69 95 07/08/19 19:02 36.7 C 103 H 16 117/72 96 PG Care Time/CCT Total # of Minutes Spent Total Time Spent with Patient: Total time spent is greater than 50% in coordination of care (as documented) at patient's floor/unit and/or counseling patient: Coding Level of Care Code None Diagnoses Abscess of axilla, left L02.412
--- NOTE | 2019-07-09 08:01 | Anesthesiology Progress Note ---
Date of Service July 09, 2019 Anesthesia Post Procedure Vital Signs Vital Signs: Temp Pulse Resp BP Pulse Ox 07/09/19 07:33 36.7 C 72 18 111/73 97 07/09/19 03:30 36.9 C 69 22 110/72 97 07/08/19 23:30 36.9 C 88 20 111/69 95 07/08/19 19:02 36.7 C 103 H 16 117/72 96 07/08/19 15:51 100 H 18 133/87 99 07/08/19 14:56 87 18 128/77 97 07/08/19 14:23 36.9 C 76 18 120/76 98 07/08/19 13:30 37.0 C 79 16 117/72 98 07/08/19 13:20 37.0 C 87 17 124/79 98 07/08/19 13:10 37.0 C 86 16 127/76 98 07/08/19 13:00 83 16 132/80 98 07/08/19 12:50 85 16 126/78 98 07/08/19 12:40 74 12 121/78 100 07/08/19 12:30 82 14 120/78 100 07/08/19 12:22 37.1 C 76 20 121/76 100 07/08/19 10:31 37.3 C 105 H 20 141/98 H 100 Pain Intensity Left Axilla: Pain Intensity: 1 Notes Mental Status: alert / awake / arousable Patient Amnestic to Procedure: Yes Nausea / Vomiting: adequately controlled Pain: adequately controlled Airway Patency, RR, SpO2: stable & adequate BP & HR: stable & adequate Hydration State: stable & adequate Anesthetic Complications: no major complications apparent
[2019-07-09] MEDS: LISINOPRIL/HCTZ 20/12.5MG 1 TAB TAB PO SCH (08:48)
[2019-07-10] MEDS: PIPERACILLIN/TAZOBACTAM 3.375 GM in DEXTROSE 5% 100 ML IV SCH (04:30)
[2019-07-10] MEDS: LISINOPRIL/HCTZ 20/12.5MG 1 TAB TAB PO SCH (08:35)
--- NOTE | 2019-07-13 09:32 | Discharge Summary ---
PRINCIPAL DIAGNOSIS: Left axillary abscess. PROCEDURES: The patient underwent incision, drainage and debridement of left axillary abscess with drain placement. HISTORY OF PRESENT ILLNESS: The patient is a 34-year-old female who has been followed with a left axillary abscess with recurrence, it had been aspirated prior in the breast clinic. HOSPITAL COURSE: The patient was brought to the hospital and taken to the operating room where she underwent incision, drainage and debridement of her left axillary abscess which was relatively large. It did not appear to be a MRSA type abscess with microabscesses. Drains were placed. The patient has done well with dressing changes and IV antibiotics. She will be discharged home on Augmentin to be followed in the surgical clinic within 1 week.
== END 2019-07-10 10:09 | disposition home or self-care (01) ==
LOC: ASU 09:41 → 3E 12:17 → INTOOBSV 12:17